=== PATIENT | female | born 1955 | race American Indian/Alaskan Native ===

== ENCOUNTER 2017-02-11 07:53 | Day surgery (SDC) | payer OTHER ==
[2017-02-11] MEDS ORDERED: ECOTRIN PO ONE (08:09)
[2017-02-11 08:33] LABS: Basophils % (Auto) 0.3 % (0.0-1.8); Eosinophils % (Auto) 0.6 % (0.0-4.3); Hematocrit 36.5 % (30.3-42.9); Hemoglobin 11.9 gm/dl (10.1-14.3); Mean Corpuscular HGB Conc 33 % (30-34); Mean Corpuscular Hemoglobin 30 pg (28-32); Mean Corpuscular Volume 91 fl (79-97); Platelet Count 275 K/mm3 (140-440); Red Blood Count 3.99 M/mm3 (3.65-5.03); Red Cell Distribution Width 14.7 % (13.2-15.2); White Blood Count 11.3 K/mm3 (4.5-11.0)
[2017-02-11 08:37] LABS: INR 0.9 (0.87-1.13)
[2017-02-11] MEDS ORDERED: NITROGLYCERIN SYRINGE 3 ML ONE (08:54)
[2017-02-11] MEDS ORDERED: CALAN ONE (08:54)
[2017-02-11] MEDS ORDERED: HEPARIN 10,000 UNITS/10 ML ONE (08:54)
[2017-02-11] MEDS ORDERED: HEPARIN/NS 5000 UNIT/500ML(CATH LAB) 1,000 ML IR ONE (08:54)
[2017-02-11] MEDS ORDERED: XYLOCAINE 2% INFILTRATI ONE (08:54)
[2017-02-11] MEDS ORDERED: VERSED ONE (08:55)
[2017-02-11] MEDS ORDERED: SUBLIMAZE ONE (08:56)
[2017-02-11 08:57] LABS: Anion Gap 16 mmol/L; Blood Urea Nitrogen 12 mg/dL (7-17); Calcium 9.3 mg/dL (8.4-10.2); Carbon Dioxide 28 mmol/L (22-30); Chloride 102.4 mmol/L (98-107); Glucose 117 mg/dL (65-100); Potassium 3.9 mmol/L (3.6-5.0); Sodium 142 mmol/L (137-145)
[2017-02-11] MEDS ORDERED: NACL 0.9% 500 ML 500 ML IV SCH (09:00)
[2017-02-11] MEDS ORDERED: LOPRESSOR IV ONE (09:19)
--- NOTE | 2017-02-11 09:30 | Short Stay Summary ---
Short Stay Documentation Date of service: 02/11/17 - History H&P: obtained from office - Allergies and Medications Current Medications: Allergies No Known Allergies Allergy (Verified 02/11/17 08:30) Home Medications Medication Instructions Recorded Confirmed Last Taken Type Lisinopril [Zestril TAB] 10 mg PO DAILY 02/11/17 02/11/17 02/10/17 History Metoprolol [Lopressor TAB] 25 mg PO DAILY 02/11/17 02/11/17 02/10/17 History Simvastatin [Zocor TAB] 20 mg PO QHS 02/11/17 02/11/17 02/10/17 History amLODIPine [Norvasc] 10 mg PO DAILY 02/11/17 02/11/17 02/10/17 History Active Medications Sodium Chloride (Nacl 0.9% 500 Ml) 500 mls @ 50 mls/hr IV DIRECT FENG Stop: 02/11/17 18:59 Last Admin: 02/11/17 08:33 Dose: 50 mls/hr - Brief post op/procedure progress note Date of procedure: 02/11/17 Pre-op diagnosis: abnl stress Post-op diagnosis: same Procedure: see report Anesthesia: local Estimated blood loss: none Pathology: none - Disposition Condition at discharge: Good Disposition: DC-01 TO HOME OR SELFCARE - Discharge Diagnoses (1) Chest pain Status: Chronic Qualifiers: Chest pain type: other chest pain Ischemic chest pain type: I Qualified Code(s): R07.89 - Other chest pain; R07.8 - Other chest pain (2) Abnormal stress test Status: Acute (3) Hypertension Status: Chronic Qualifiers: Hypertension type: essential hypertension Qualified Code(s): I10 - Essential (primary) hypertension (4) Hyperlipemia, mixed Status: Chronic Short Stay Discharge Plan Activity: advance as tolerated Diet: low salt Wound: keep clean and dry Follow up with: PRIMARY CARE, [Primary Care Provider] - 7 Days
[2017-02-11 11:43] VITALS: BP 151/95
--- NOTE | 2017-02-11 13:58 | Cardiac Catherization Report ---
CLINICAL INFORMATION: This is a 62-year-old female with hypertension, hyperlipidemia who had ST depressions on exercise stress test reported exercise capacity for abnormal stress test with frequent ectopy is here for left heart catheterization. Left heart catheterization performed via the right radial artery, sterile technique, local anesthesia, 6-Moldovan radial sheath inserted. Left system engaged with a JL3.5 catheter. FINDINGS: Left main is a large caliber vessel is patent, but short and patent, bifurcates into a large caliber LAD that is patent from proximally is moderate tortuosity. Diagonal 1 and diagonal 2 are small caliber vessels, is patent. Circumflex and AV groove is a medium caliber vessel, patent, bifurcates into small to medium caliber OM1, OM2 and OM3 with moderate tortuosity are patent. RCA engaged with JR4 catheter, is a large dominant vessel, patent from proximally and distally, bifurcates into small PDA and PLV that are patent with moderate tortuosity. LV gram done in TURK[place] and HERMAN view shows normal LV function, LVEDP of 14 mmHg, LV is 171/14. Aortic is 173/68. No gradient across the aortic valve on pullback. 5-Moldovan catheters were taken over a guidewire, 6-Moldovan radial sheath was discontinued. Radial dressing applied. No hematoma. No bleeding. SUMMARY: 1. Normal coronaries, right dominant system, moderate tortuosity of vessels, normal LV function. 2. Continue risk factor modification and post-radial care. JOB# [id number] AZAR/KIMANI
== END 2017-02-11 12:35 | disposition home or self-care (01) ==
LOC: OPU 07:53
PROVIDERS: ATTEND Internal Medicine
DX: R94.39 Abnormal result of other cardiovascular function study (principal); I10 Essential (primary) hypertension; E78.2 Mixed hyperlipidemia; Z79.899 Other long term (current) drug therapy; Z72.89 Other problems related to lifestyle; Z87.891 Personal history of nicotine dependence; Z82.49 Family history of ischemic heart disease and other diseases of the circulatory system
CPT/HCPCS: 36415; 80048; 85025; 85610; 85730; 93005; 93010; 93458; C1769; C1894; J1644; J2250; J3010; J7040; Q9967

== ENCOUNTER 2017-12-05 12:34 | Outpatient (CLI) | payer OTHER ==
--- NOTE | 2017-12-05 13:55 | Mammography Report ---
BILATERAL MAMMOGRAM: FINDINGS: The breast tissue is heterogeneously dense, which could obscure detection of small masses (approximately 50%-75% glandular). No mass, distortion, suspicious calcification, or skin change is seen. There is no significant change when compared to her prior exam in June 2016. CAD was utilized. IMPRESSION: Negative mammogram. There is no mammographic evidence of malignancy. RECOMMENDATION: Follow-up per ACS guidelines. BI-RADS CATEGORY: 1 = Negative ACR BI-RADS MAMMOGRAPHIC CODES: 0 = Needs additional imaging evaluation; 1 = Negative; 2 = Benign; 3 = Probably benign; 4 = Suspicious; 5 = Malignant; 6 = Known biopsy-proven malignancy COMMENT: 1. Dense breast tissue, i.e., adenosis, fibrocystic changes, etc., may obscure an underlying neoplasm. 2. Approximately 10% of cancers are not detected with mammography. 3. A negative mammography report should not delay biopsy if a clinically suspicious mass is present. COMMENT: Patient follow-up letters are generated in [employer].
== END 2017-12-05 12:35 | disposition home or self-care (01) ==
LOC: SPVWC 12:34
PROVIDERS: ATTEND Internal Medicine
DX: Z12.31 Encounter for screening mammogram for malignant neoplasm of breast (principal)
CPT/HCPCS: 77067

== ENCOUNTER 2018-11-20 08:39 | Outpatient (CLI) | payer OTHER ==
--- NOTE | 2018-11-20 10:02 | Vascular Lab Report ---
PROCEDURE: VL VENOUS DUPLEX LE BILAT TECHNIQUE: Grayscale, color flow and spectral waveform images were obtained of bilateral lower extre mities. HISTORY: LOCALIZED EDEMA COMPARISON: None FINDINGS: There is no deep venous thrombosis or superficial venous thrombosis seen in the left or right lower e xtremity. Flow is demonstrated by color flow and spectral waveform imaging. There is appropriate wall compression and augmentation. There is deep venous reflux seen in right common femoral vein of 2075 ms in the left common femoral v ein of 2783 ms. IMPRESSION: There is no evidence for DVT in either right or left lower extremity. Venous reflux seen in bilateral common femoral veins. This document is electronically signed by Rayne Littlejohn MD., November 20 2018 10:00:29 AM ET
== END 2018-11-20 08:40 | disposition home or self-care (01) ==
LOC: VAS 08:39
PROVIDERS: ATTEND Internal Medicine
DX: R60.0 Localized edema (principal); I10 Essential (primary) hypertension; E78.5 Hyperlipidemia, unspecified; E78.00 Pure hypercholesterolemia, unspecified; Z87.891 Personal history of nicotine dependence
CPT/HCPCS: 93970

== ENCOUNTER 2019-03-26 08:37 | Outpatient (CLI) | payer OTHER ==
--- NOTE | 2019-03-26 13:45 | Mammography Report ---
DIGITAL SCREENING MAMMOGRAM WITH TOMOSYNTHESIS WITH CAD, 03/26/2019 INDICATION: Screening. TECHNIQUE: Digital bilateral 2D and 3D mammography with tomosynthesis was obtained in the craniocaud al and mediolateral oblique projections. Computer-Aided Detection (CAD) analysis was used for interp retation of this study. COMPARISON: 07/21/2016, 12/05/2017 FINDINGS: Breast Density: There are scattered areas of fibroglandular density. There is no evidence of dominant mass, suspicious calcifications or architectural distortion in eithe r breast. No interval change. IMPRESSION: No evidence of malignancy. BI-RADS Category 1: Negative. No mammographic evidence of malignancy. Recommend routine screening mammography in one year. A "normal" or negative report should not discourage follow up or biopsy of a clinically significant f inding. A written summary of these findings will be mailed to the patient. The patient will be entered into a mammography reporting system which will generate a reminder letter for the patient's next appointmen t at the appropriate interval. The [employer] recommends yearly mammograms starting at age 40 and continuing as l josé as a woman is in good health. Breast MRI is recommended for women with an approximate 20-25% or greater lifetime risk of breast cancer, including women with a strong family history of breast or ova bela cancer or who have been treated for Hodgkin's disease. Signer Name: Alicia Alexandra MD Signed: 03/26/2019 1:40 PM Workstation Name: [id number]
== END 2019-03-26 08:38 | disposition home or self-care (01) ==
LOC: MAMMO 08:37
PROVIDERS: ATTEND Internal Medicine
DX: Z12.31 Encounter for screening mammogram for malignant neoplasm of breast (principal); E78.00 Pure hypercholesterolemia, unspecified; I10 Essential (primary) hypertension
CPT/HCPCS: 77067